=== PATIENT | male | born 1950 ===

== ENCOUNTER 2020-06-12 08:01 | Emergency (ER) | payer OTHER, SELFPAY ==
[2020-06-12] VITALS (108 sets, daily range): BP systolic 46–136; BP diastolic 24–79; PULSE 56–85; RESP 6–33; TEMP 36–36.9; O2SAT 92–100
--- NOTE | 2020-06-12 08:07 | ED.WEAKNESS ---
HPI - Weakness General Chief complaint: GI Bleed Stated complaint: weakness Time Seen by Provider: 06/12/20 08:07 Source: patient and EMS Mode of arrival: EMS History of Present Illness HPI Narrative: Patient is a 70-year-old male history of diabetes hypertension, on methadone for history of IVDA presenting from the methadone clinic for weakness. He apparently felt extremely weak dizzy lightheaded he appears pale. Upon arrival to the emergency department expressing extreme an urgent need to have a bowel movement. He was assisted to a commode for had a large black bowel movement. Blood pressure was found to be extremely low and the 50s. He feels nauseous and is having abdominal pain. Says that he was feeling okay yesterday denies any history of GI bleeding. Does not appear to be on any antiplatelet or anticoagulation medications. He did not get his methadone this morning. Patient thinks he put something on his tamales last night and it gave him diarrhea. Have called and spoken to she is at bedside. MD Complaint: generalized weakness Related Data Allergies Allergy/AdvReac Type Severity Reaction Status Date / Time No Known Drug Allergies Allergy Verified 06/12/20 09:23 Review of Systems Review of Systems ROS Unobtainable: All systems reviewed & are unremarkable except as noted in HPI and below Constitutional Constitutional: Reports weakness Cardiovascular Cardiovascular: Denies chest pain, Denies irregular heart rhythm, Reports lightheadedness, Denies palpitations, Denies dyspnea, Denies dyspnea on exertion and Denies orthopnea Respiratory Respiratory: Denies cough, Denies dyspnea, Denies dyspnea on exertion and Denies wheezing Gastrointestinal Gastrointestinal: Reports as per HPI, Reports melena, Denies coffee ground emesis, Reports nausea and Denies vomiting Musculoskeletal Musculoskeletal: Denies back pain and Denies muscle cramps Integumentary/Breasts Skin/Breast: Denies pruritus, Denies erythema, Denies rash and Denies wounds Neurologic Neurologic: Reports weakness Endocrine Endocrine: Denies palpitations Allergic/Immunologic Allergic/Immunologic: Denies wheezing Patient History Medical History Diabetes Hyperlipidemia Hypertension Social History Smoking Status: Current every day smoker Exam Initial Vital Signs Initial Vital Signs: Vital Signs Pulse Rate 65 06/12/20 08:09 Pulse Oximetry 92 06/12/20 08:09 Gen.: Pale week alert and oriented male HEENT: Head is atraumatic EOMI Neck: Supple no JVD Lungs: Clear bilaterally no respiratory distress rales or rhonchi Cardiac: Regular rate and rhythm Abdomen: Nondistended diffusely tender no localization no guarding or rebound Extremities: Peripheral pulses intact no gross bony deformity Neurologic: A&O x3 moving all extremities Procedures Central Line Placement Left IJ: Time Out Performed: Yes Patient Placed on Monitor/Pulse Ox: Yes MD Prep: mask, gown and gloves Central Line Prep: Chlorhexidine scrub and sterile drapes applied Local Anesthetic: lidocaine 1% Amount of anesthesia used (mL): 5 Ultrasound Used for Placement: Yes Central Line Lumen Inserted: triple Post Procedure: good blood return, all ports aspirated, flushed, capped and sterile dressing applied Post Procedure X-Ray: tip of catheter in good position and no pneumothorax seen Patient Tolerated Procedure: Well Complications: none Scores GCS [place] coma scale eye opening: Spontaneous [place] coma scale verbal response: Orientated [place] coma scale motor response: Obey commands [place] coma scale total score: 15 Course Orders Ordered: ED Orders 06/12/20 08:28 EKG-12 Lead Stat 06/12/20 08:30 Acetaminophen Stat Complete Blood Count AUTO DIFF Stat Comprehensive Metabolic Panel Stat Ethanol (ETOH) Stat Lactate (Lactic Acid) Stat Lipase Stat Packed Cells Stat Salicylate Stat Troponin & CK Cardiac Panel Stat Type and Screen Stat 06/12/20 08:42 XR chest 1V Stat 06/12/20 08:45 Partial Thromboplastin Time Stat Prothrombin Time INR Stat 06/12/20 09:10 COVID19 -Nasal swab/Pre-Proc Stat 06/12/20 09:54 CT chest abd pel w con Stat 06/12/20 10:22 Hemoglobin and Hematocrit Stat 06/12/20 11:00 Blood Culture Stat 06/12/20 11:10 GI Panel (Film Array) Stat 06/12/20 12:45 Basic Metabolic Panel Stat Hemoglobin and Hematocrit Stat 06/12/20 13:44 Urine Drug Screen, Rapid Stat Discontinued Medications Fentanyl (Fentanyl 100 Mcg/2 Ml Inj) 50 mcg IV NOW ONE Stop: 06/12/20 09:18 Last Admin: 06/12/20 09:18 Dose: 50 mcg Documented by: SHAILA Hydromorphone HCl (Hydromorphone 1 Mg Inj) 1 mg IV NOW ONE Stop: 06/12/20 12:08 Last Admin: 06/12/20 12:12 Dose: 1 mg Documented by: SHAILA Sodium Chloride (Normal Saline 0.9%) 1,000 mls @ 2,000 mls/hr IV BOLUS ONE Stop: 06/12/20 08:56 Last Infusion: 06/12/20 09:16 Dose: 0 mls/hr Documented by: Admin: 06/12/20 08:40 Dose: 2,000 mls/hr Documented by: SHAILA Pantoprazole Sodium 80 mg/ (Sodium Chloride) 100 mls @ 10 mls/hr IV CONT MISSY Last Infusion: 06/12/20 14:22 Dose: 0 mg/hr, 0 mls/hr Documented by: Admin: 06/12/20 09:02 Dose: 8 mg/hr, 10 mls/hr Documented by: SHAILA Norepinephrine Bitartrate 4 mg (/ Dextrose) 254 mls @ 30.48 mls/hr IV TITRATE MISSY; Protocol Last Titration: 06/12/20 14:23 Dose: 0 mcg/min, 0 mls/hr Documented by: Titration: 06/12/20 12:53 Dose: 2 mcg/min, 7.62 mls/hr Documented by: Titration: 06/12/20 12:36 Dose: 0 mcg/min, 0 mls/hr Documented by: Titration: 06/12/20 12:08 Dose: 2 mcg/min, 7.62 mls/hr Documented by: Titration: 06/12/20 11:59 Dose: 4 mcg/min, 15.24 mls/hr Documented by: Titration: 06/12/20 11:40 Dose: 5 mcg/min, 19.05 mls/hr Documented by: Titration: 06/12/20 11:22 Dose: 6 mcg/min, 22.86 mls/hr Documented by: Titration: 06/12/20 11:20 Dose: 7 mcg/min, 26.67 mls/hr Documented by: Admin: 06/12/20 09:29 Dose: 8 mcg/min, 30.48 mls/hr Documented by: SHAILA Piperacillin/Tazobactam/Dextrose (Zosyn) 3.375 gm in 50 mls @ 100 mls/hr IV NOW ONE Stop: 06/12/20 10:03 Last Infusion: 06/12/20 10:15 Dose: 0 mls/hr Documented by: Admin: 06/12/20 09:45 Dose: 100 mls/hr Documented by: SHAILA Vancomycin HCl (Vancomycin) 1,000 mg in 200 mls @ 200 mls/hr IV NOW ONE Stop: 06/12/20 10:33 Last Infusion: 06/12/20 11:19 Dose: 0 mls/hr Documented by: Admin: 06/12/20 10:18 Dose: 200 mls/hr Documented by: SHAILA Norepinephrine Bitartrate 4 mg (/ Dextrose) 254 mls @ 30.48 mls/hr IV TITRATE MISSY; Protocol Last Admin: 06/12/20 13:16 Dose: Not Given Documented by: WILLOW Lactated Ringer's (Lactated Ringers) 1,973.13 mls @ 657.71 mls/hr 30 ml/kg infuse over 3 hr (1973.13 ml) IV NOW ONE Stop: 06/12/20 13:55 Last Infusion: 06/12/20 14:23 Dose: 0 mls/hr Documented by: Admin: 06/12/20 11:17 Dose: 657.71 mls/hr Documented by: SHAILA Ceftriaxone Sodium/Dextrose (Rocephin) 2 gm in 50 mls @ 100 mls/hr IV NOW ONE Stop: 06/12/20 12:36 Last Infusion: 06/12/20 13:16 Dose: 0 mls/hr Documented by: Admin: 06/12/20 12:11 Dose: 100 mls/hr Documented by: SHAILA Octreotide Acetate 500 mcg/ (Sodium Chloride) 101 mls @ 5.05 mls/hr IV CONT MISSY; Protocol Last Infusion: 06/12/20 14:23 Dose: 0 mcg/hr, 0 mls/hr Documented by: Admin: 06/12/20 13:17 Dose: 25 mcg/hr, 5.05 mls/hr Documented by: WILLOW Octreotide Acetate (Octreotide 100 Mcg/Ml Vial) 50 mcg IV NOW ONE Stop: 06/12/20 12:08 Last Admin: 06/12/20 12:11 Dose: 50 mcg Documented by: SHAILA Ondansetron HCl (Ondansetron 4 Mg/2 Ml Inj) 4 mg IV NOW ONE Stop: 06/12/20 08:28 Last Admin: 06/12/20 08:40 Dose: 4 mg Documented by: SHAILA Ondansetron HCl (Ondansetron 4 Mg/2 Ml Inj) 4 mg IV NOW ONE Stop: 06/12/20 08:29 Last Admin: 06/12/20 09:07 Dose: 4 mg Documented by: SHAILA Pantoprazole Sodium (Pantoprazole 40 Mg Vial) 40 mg IV NOW ONE Stop: 06/12/20 08:28 Last Admin: 06/12/20 08:40 Dose: 40 mg Documented by: SHAILA Vital Signs Vital signs: Vital Signs - 8 hr 06/12/20 08:53 06/12/20 08:54 06/12/20 08:55 Temperature 97.5 F L Pulse Rate 63 63 60 Respiratory Rate 24 20 21 Blood Pressure 66/43 L 63/43 L 64/43 L Pulse Oximetry 94 94 94 06/12/20 08:56 06/12/20 08:57 06/12/20 08:58 Temperature Pulse Rate 60 61 61 Respiratory Rate 22 23 21 Blood Pressure 66/44 L 65/45 L 66/46 L Pulse Oximetry 93 94 94 06/12/20 08:59 06/12/20 09:00 06/12/20 09:01 Temperature Pulse Rate 63 63 61 Respiratory Rate 21 26 H 23 Blood Pressure 64/44 L 67/44 L Pulse Oximetry 93 95 94 06/12/20 09:02 06/12/20 09:03 06/12/20 09:04 Temperature Pulse Rate 60 61 61 Respiratory Rate 17 19 19 Blood Pressure 67/40 L 67/45 L 66/45 L Pulse Oximetry 95 96 96 06/12/20 09:05 06/12/20 09:10 06/12/20 09:15 Temperature Pulse Rate 62 61 62 Respiratory Rate 19 17 24 Blood Pressure 65/42 L 67/44 L 63/43 L Pulse Oximetry 97 97 97 06/12/20 09:20 06/12/20 09:21 06/12/20 09:22 Temperature 96.8 F L Pulse Rate 61 61 68 Respiratory Rate 23 27 H 29 H Blood Pressure 63/45 L 66/41 L 77/44 L Pulse Oximetry 96 96 95 06/12/20 09:23 06/12/20 09:24 06/12/20 09:25 Temperature Pulse Rate 71 71 70 Respiratory Rate 28 H 23 20 Blood Pressure 92/54 L 86/48 L 82/45 L Pulse Oximetry 95 97 97 06/12/20 09:26 06/12/20 09:27 06/12/20 09:28 Temperature Pulse Rate 71 71 70 Respiratory Rate 20 26 H 22 Blood Pressure 83/44 L 78/44 L 74/44 L Pulse Oximetry 98 98 99 06/12/20 09:29 06/12/20 09:30 06/12/20 09:31 Temperature Pulse Rate 68 68 68 Respiratory Rate 21 22 24 Blood Pressure 73/44 L 74/44 L 72/40 L Pulse Oximetry 98 98 99 06/12/20 09:32 06/12/20 09:33 06/12/20 09:36 Temperature Pulse Rate 67 69 70 Respiratory Rate 17 20 31 H Blood Pressure 82/48 L 96/51 L 103/79 Pulse Oximetry 100 100 100 06/12/20 09:37 06/12/20 09:38 06/12/20 09:39 Temperature Pulse Rate 71 69 69 Respiratory Rate 28 H 30 H 27 H Blood Pressure 100/59 L 98/60 97/55 L Pulse Oximetry 99 98 98 06/12/20 09:40 06/12/20 09:41 06/12/20 09:42 Temperature Pulse Rate 68 68 69 Respiratory Rate 32 H 30 H 22 Blood Pressure 105/55 L 103/53 L 106/55 L Pulse Oximetry 98 99 99 06/12/20 09:43 06/12/20 09:44 06/12/20 09:45 Temperature Pulse Rate 68 68 68 Respiratory Rate 31 H 24 27 H Blood Pressure 104/57 L 105/59 L 94/52 L Pulse Oximetry 98 98 97 06/12/20 09:46 06/12/20 09:47 06/12/20 09:48 Temperature Pulse Rate 69 71 69 Respiratory Rate 33 H 32 H 33 H Blood Pressure 105/53 L 110/55 L 101/52 L Pulse Oximetry 98 98 98 06/12/20 09:49 06/12/20 09:50 06/12/20 09:51 Temperature Pulse Rate 68 67 68 Respiratory Rate 31 H 26 H 32 H Blood Pressure 117/56 L 121/60 123/55 L Pulse Oximetry 99 99 98 06/12/20 09:55 06/12/20 10:00 06/12/20 10:13 Temperature Pulse Rate 62 63 67 Respiratory Rate 24 22 24 Blood Pressure 105/51 L 124/62 Pulse Oximetry 98 99 97 06/12/20 10:30 06/12/20 10:58 06/12/20 11:00 Temperature Pulse Rate 72 64 64 Respiratory Rate 16 16 16 Blood Pressure 116/58 L Pulse Oximetry 95 97 06/12/20 11:15 06/12/20 11:20 06/12/20 11:25 Temperature Pulse Rate 80 75 67 Respiratory Rate 23 13 22 Blood Pressure 113/59 L 126/56 L 108/58 L Pulse Oximetry 96 96 96 06/12/20 11:30 06/12/20 11:35 06/12/20 11:40 Temperature Pulse Rate 61 63 56 L Respiratory Rate 17 17 13 Blood Pressure 128/60 121/56 L 109/55 L Pulse Oximetry 96 96 96 06/12/20 11:45 06/12/20 11:50 06/12/20 11:56 Temperature Pulse Rate 66 56 L 57 L Respiratory Rate 14 27 H 23 Blood Pressure 109/53 L 136/63 127/62 Pulse Oximetry 97 96 96 06/12/20 12:00 06/12/20 12:05 06/12/20 12:10 Temperature Pulse Rate 57 L 59 L 58 L Respiratory Rate 22 22 24 Blood Pressure 124/57 L 110/56 L 112/55 L Pulse Oximetry 97 97 96 06/12/20 12:15 06/12/20 12:20 06/12/20 12:26 Temperature Pulse Rate 57 L 61 65 Respiratory Rate 14 23 6 L Blood Pressure 108/55 L 127/60 103/49 L Pulse Oximetry 96 97 95 06/12/20 12:30 06/12/20 12:34 06/12/20 12:35 Temperature Pulse Rate 60 66 69 Respiratory Rate 25 H 24 25 H Blood Pressure 90/49 L 93/52 L Pulse Oximetry 96 96 96 06/12/20 12:40 06/12/20 12:45 06/12/20 12:51 Temperature Pulse Rate 67 63 64 Respiratory Rate 21 16 22 Blood Pressure 93/52 L 84/47 L 98/53 L Pulse Oximetry 96 96 97 06/12/20 13:00 06/12/20 13:15 06/12/20 13:28 Temperature Pulse Rate 65 69 72 Respiratory Rate 23 24 22 Blood Pressure 104/53 L Pulse Oximetry 96 96 96 06/12/20 13:30 06/12/20 13:36 06/12/20 13:40 Temperature Pulse Rate 72 75 74 Respiratory Rate 24 22 21 Blood Pressure 102/44 L 110/59 L 116/50 L Pulse Oximetry 96 95 95 06/12/20 13:45 06/12/20 13:50 06/12/20 14:00 Temperature Pulse Rate 74 78 78 Respiratory Rate 23 21 16 Blood Pressure 113/53 L 106/55 L 108/55 L Pulse Oximetry 92 95 95 06/12/20 14:05 06/12/20 14:10 06/12/20 14:15 Temperature 98.4 F Pulse Rate 76 72 75 Respiratory Rate 20 22 19 Blood Pressure 115/56 L 123/56 L 115/59 L Pulse Oximetry 95 95 96 06/12/20 14:20 Temperature Pulse Rate 78 Respiratory Rate 17 Blood Pressure 122/59 L Pulse Oximetry 96 MDM - Weakness Lab Data Attestation: I reviewed the patient's lab results. Result diagrams: 06/12/20 12:45 06/12/20 12:45 Labs: Lab Results 06/12/20 06/12/20 06/12/20 Range/Units 08:30 08:30 08:30 WBC 8.9 (4.5-11.0) X10^3/uL RBC 4.17 L (4.5-5.9) X10^6/uL Hgb 14.4 (13.5-17.5) g/dL Hct 40.0 L (41-53) % MCV 95.9 (80-100) fL MCH 34.5 H (26-34) PG MCHC 36.0 (30-36) % RDW 13.5 (11.6-14.8) % Plt Count TNP Neut % (Auto) 62.5 (50-75) % Lymph % (Auto) 26.9 (25-40) % [place] % (Auto) 4.2 (3-14) % Eos % (Auto) 5.7 H (2-4) % Baso % (Auto) 0.7 (0-2) % Neut # (Auto) 5500 (9786-5631) /uL Lymph # (Auto) 2400 (7699-2322) /uL [place] # (Auto) 400 (0-900) /uL Eos # (Auto) 500 H (0-450) /uL Baso # (Auto) 100 (0-100) /uL Platelet Estimate Decreased on smear Plt Morphology Comment RBC Morphology Norm PT (10.1-12.7) SECONDS INR (0.9-1.3) APTT (26.4-36.2) SECONDS Sodium 137 (137-145) mmol/L Potassium 4.6 (3.4-5.1) mmol/L Chloride 102 (98-107) mmol/L Carbon Dioxide 19 L (22-32) mmol/L BUN 60 H (9-20) mg/dL Creatinine 2.82 H (0.66-1.25) mg/dL Estimated GFR 22.2 L (>60) mL/min BUN/Creatinine Ratio 21.3 (6-22) Glucose 311 H (80-110) mg/dL Lactate 3.9 H (0.7-2.1) mmol/L Calcium 10.7 H (8.4-10.2) mg/dL Total Bilirubin 0.9 (0.2-1.3) mg/dL AST 51 (17-59) IU/L ALT 26 (<50) IU/L Alkaline Phosphatase 115 (38-126) U/L Total Creatine Kinase 49 L (55-170) U/L CK-MB (CK-2) TNP CK-MB (CK-2) Rel Index TNP Troponin I < 0.012 (0.01-0.034) ng/mL Total Protein 9.3 H (6.3-8.2) g/dL Albumin 4.8 (3.5-5.0) g/dL Globulin 4.5 H (1.7-4.1) g/dL Albumin/Globulin Ratio 1.1 (1.0-2.8) Lipase 546 H (23-300) U/L Stl C. cayetanensis PCR (Not Detect) Stool Rotavirus (PCR) (Not Detect) Stool Adenovirus (PCR) (Not Detect) Stool Astrovirus (PCR) (Not Detect) Stool Cryptosporidium PCR (Not Detect) Stl E.coli Shiga Tox PCR (Not Detect) St Sh/Enteroin Ecoli PCR (Not Detect) Stool E coli O157 PCR Stl Enterotoxigenic E PCR (Not Detect) Stool EPEC (PCR) (Not Detect) Stl E. histolytica PCR (Not Detect) Stool Giardia Lamblia PCR (Not Detect) Stool Sapovirus (PCR) (Not Detect) Stl P. shigelloides PCR (Not Detect) St Y.enterocolitica PCR (Not Detect) Stool Vibrio (PCR) (Not Detect) Stl Vibrio cholerae PCR (Not Detect) Stl Enteroaggr Ecoli PCR (Not Detect) Stl Norovirus GI/GII PCR (Not Detect) Salicylates 1.3 (<20) mg/dL U Opiates 300ng/mL cut (Negative) Ur Oxycodone Screen (Negative) Urine Methadone Screen (Negative) Acetaminophen < 10 L (10-30) ug/mL Ur Barbiturates Screen (Negative) U Tricyclic Antidepress (Negative) Ur Phencyclidine Scrn (Negative) Ur Amphetamines Screen (Negative) U Methamphetamines Scrn (Negative) Ur MDMA Scrn (Ecstasy) (Negative) U Benzodiazepines Scrn (Negative) Urine Cocaine Screen (Negative) U Marijuana (THC) Screen (Negative) Ethyl Alcohol < 10 ( - 10) mg/dL Campylobacter (PCR) (Not Detect) C. difficile Tox (PCR) (Not Detect) SARS-CoV-2 (PCR) (Negative) Salmonella (PCR) (Not Detect) Blood Type Antibody Screen Crossmatch 06/12/20 06/12/20 06/12/20 Range/Units 08:30 08:45 09:10 WBC (4.5-11.0) X10^3/uL RBC (4.5-5.9) X10^6/uL Hgb (13.5-17.5) g/dL Hct (41-53) % MCV (80-100) fL MCH (26-34) PG MCHC (30-36) % RDW (11.6-14.8) % Plt Count Neut % (Auto) (50-75) % Lymph % (Auto) (25-40) % [place] % (Auto) (3-14) % Eos % (Auto) (2-4) % Baso % (Auto) (0-2) % Neut # (Auto) (1650-4914) /uL Lymph # (Auto) (4591-9666) /uL [place] # (Auto) (0-900) /uL Eos # (Auto) (0-450) /uL Baso # (Auto) (0-100) /uL Platelet Estimate Plt Morphology Comment RBC Morphology PT 11.9 (10.1-12.7) SECONDS INR 1.0 (0.9-1.3) APTT 20 L (26.4-36.2) SECONDS Sodium (137-145) mmol/L Potassium (3.4-5.1) mmol/L Chloride (98-107) mmol/L Carbon Dioxide (22-32) mmol/L BUN (9-20) mg/dL Creatinine (0.66-1.25) mg/dL Estimated GFR (>60) mL/min BUN/Creatinine Ratio (6-22) Glucose (80-110) mg/dL Lactate (0.7-2.1) mmol/L Calcium (8.4-10.2) mg/dL Total Bilirubin (0.2-1.3) mg/dL AST (17-59) IU/L ALT (<50) IU/L Alkaline Phosphatase (38-126) U/L Total Creatine Kinase (55-170) U/L CK-MB (CK-2) CK-MB (CK-2) Rel Index Troponin I (0.01-0.034) ng/mL Total Protein (6.3-8.2) g/dL Albumin (3.5-5.0) g/dL Globulin (1.7-4.1) g/dL Albumin/Globulin Ratio (1.0-2.8) Lipase (23-300) U/L Stl C. cayetanensis PCR (Not Detect) Stool Rotavirus (PCR) (Not Detect) Stool Adenovirus (PCR) (Not Detect) Stool Astrovirus (PCR) (Not Detect) Stool Cryptosporidium PCR (Not Detect) Stl E.coli Shiga Tox PCR (Not Detect) St Sh/Enteroin Ecoli PCR (Not Detect) Stool E coli O157 PCR Stl Enterotoxigenic E PCR (Not Detect) Stool EPEC (PCR) (Not Detect) Stl E. histolytica PCR (Not Detect) Stool Giardia Lamblia PCR (Not Detect) Stool Sapovirus (PCR) (Not Detect) Stl P. shigelloides PCR (Not Detect) St Y.enterocolitica PCR (Not Detect) Stool Vibrio (PCR) (Not Detect) Stl Vibrio cholerae PCR (Not Detect) Stl Enteroaggr Ecoli PCR (Not Detect) Stl Norovirus GI/GII PCR (Not Detect) Salicylates (<20) mg/dL U Opiates 300ng/mL cut (Negative) Ur Oxycodone Screen (Negative) Urine Methadone Screen (Negative) Acetaminophen (10-30) ug/mL Ur Barbiturates Screen (Negative) U Tricyclic Antidepress (Negative) Ur Phencyclidine Scrn (Negative) Ur Amphetamines Screen (Negative) U Methamphetamines Scrn (Negative) Ur MDMA Scrn (Ecstasy) (Negative) U Benzodiazepines Scrn (Negative) Urine Cocaine Screen (Negative) U Marijuana (THC) Screen (Negative) Ethyl Alcohol ( - 10) mg/dL Campylobacter (PCR) (Not Detect) C. difficile Tox (PCR) (Not Detect) SARS-CoV-2 (PCR) Negative (Negative) Salmonella (PCR) (Not Detect) Blood Type O Positive Antibody Screen Negative Crossmatch See Detail 06/12/20 06/12/20 06/12/20 Range/Units 10:22 11:00 11:10 WBC (4.5-11.0) X10^3/uL RBC (4.5-5.9) X10^6/uL Hgb 12.9 L (13.5-17.5) g/dL Hct 38.1 L (41-53) % MCV (80-100) fL MCH (26-34) PG MCHC (30-36) % RDW (11.6-14.8) % Plt Count Neut % (Auto) (50-75) % Lymph % (Auto) (25-40) % [place] % (Auto) (3-14) % Eos % (Auto) (2-4) % Baso % (Auto) (0-2) % Neut # (Auto) (2652-4198) /uL Lymph # (Auto) (6742-7007) /uL [place] # (Auto) (0-900) /uL Eos # (Auto) (0-450) /uL Baso # (Auto) (0-100) /uL Platelet Estimate Plt Morphology Comment RBC Morphology PT (10.1-12.7) SECONDS INR (0.9-1.3) APTT (26.4-36.2) SECONDS Sodium (137-145) mmol/L Potassium (3.4-5.1) mmol/L Chloride (98-107) mmol/L Carbon Dioxide (22-32) mmol/L BUN (9-20) mg/dL Creatinine (0.66-1.25) mg/dL Estimated GFR (>60) mL/min BUN/Creatinine Ratio (6-22) Glucose (80-110) mg/dL Lactate 2.3 H (0.7-2.1) mmol/L Calcium (8.4-10.2) mg/dL Total Bilirubin (0.2-1.3) mg/dL AST (17-59) IU/L ALT (<50) IU/L Alkaline Phosphatase (38-126) U/L Total Creatine Kinase (55-170) U/L CK-MB (CK-2) CK-MB (CK-2) Rel Index Troponin I (0.01-0.034) ng/mL Total Protein (6.3-8.2) g/dL Albumin (3.5-5.0) g/dL Globulin (1.7-4.1) g/dL Albumin/Globulin Ratio (1.0-2.8) Lipase (23-300) U/L Stl C. cayetanensis PCR Not detected (Not Detect) Stool Rotavirus (PCR) Not detected (Not Detect) Stool Adenovirus (PCR) Not detected (Not Detect) Stool Astrovirus (PCR) Not detected (Not Detect) Stool Cryptosporidium PCR Not detected (Not Detect) Stl E.coli Shiga Tox PCR Not detected (Not Detect) St Sh/Enteroin Ecoli PCR Not detected (Not Detect) Stool E coli O157 PCR Not Reportable Stl Enterotoxigenic E PCR Not detected (Not Detect) Stool EPEC (PCR) Not detected (Not Detect) Stl E. histolytica PCR Not detected (Not Detect) Stool Giardia Lamblia PCR Not detected (Not Detect) Stool Sapovirus (PCR) Not detected (Not Detect) Stl P. shigelloides PCR Not detected (Not Detect) St Y.enterocolitica PCR Not detected (Not Detect) Stool Vibrio (PCR) Not detected (Not Detect) Stl Vibrio cholerae PCR Not detected (Not Detect) Stl Enteroaggr Ecoli PCR Not detected (Not Detect) Stl Norovirus GI/GII PCR Not detected (Not Detect) Salicylates (<20) mg/dL U Opiates 300ng/mL cut (Negative) Ur Oxycodone Screen (Negative) Urine Methadone Screen (Negative) Acetaminophen (10-30) ug/mL Ur Barbiturates Screen (Negative) U Tricyclic Antidepress (Negative) Ur Phencyclidine Scrn (Negative) Ur Amphetamines Screen (Negative) U Methamphetamines Scrn (Negative) Ur MDMA Scrn (Ecstasy) (Negative) U Benzodiazepines Scrn (Negative) Urine Cocaine Screen (Negative) U Marijuana (THC) Screen (Negative) Ethyl Alcohol ( - 10) mg/dL Campylobacter (PCR) Not detected (Not Detect) C. difficile Tox (PCR) Not detected (Not Detect) SARS-CoV-2 (PCR) (Negative) Salmonella (PCR) Not detected (Not Detect) Blood Type Antibody Screen Crossmatch 06/12/20 06/12/20 06/12/20 Range/Units 12:45 12:45 13:44 WBC (4.5-11.0) X10^3/uL RBC (4.5-5.9) X10^6/uL Hgb 13.3 L (13.5-17.5) g/dL Hct 38.8 L (41-53) % MCV (80-100) fL MCH (26-34) PG MCHC (30-36) % RDW (11.6-14.8) % Plt Count Neut % (Auto) (50-75) % Lymph % (Auto) (25-40) % [place] % (Auto) (3-14) % Eos % (Auto) (2-4) % Baso % (Auto) (0-2) % Neut # (Auto) (6219-0882) /uL Lymph # (Auto) (0335-9489) /uL [place] # (Auto) (0-900) /uL Eos # (Auto) (0-450) /uL Baso # (Auto) (0-100) /uL Platelet Estimate Plt Morphology Comment RBC Morphology PT (10.1-12.7) SECONDS INR (0.9-1.3) APTT (26.4-36.2) SECONDS Sodium 136 L (137-145) mmol/L Potassium 5.6 H (3.4-5.1) mmol/L Chloride 104 (98-107) mmol/L Carbon Dioxide 19 L (22-32) mmol/L BUN 57 H (9-20) mg/dL Creatinine 2.43 H (0.66-1.25) mg/dL Estimated GFR 26.4 L (>60) mL/min BUN/Creatinine Ratio 23.5 H (6-22) Glucose 325 H (80-110) mg/dL Lactate (0.7-2.1) mmol/L Calcium 8.5 (8.4-10.2) mg/dL Total Bilirubin (0.2-1.3) mg/dL AST (17-59) IU/L ALT (<50) IU/L Alkaline Phosphatase (38-126) U/L Total Creatine Kinase (55-170) U/L CK-MB (CK-2) CK-MB (CK-2) Rel Index Troponin I (0.01-0.034) ng/mL Total Protein (6.3-8.2) g/dL Albumin (3.5-5.0) g/dL Globulin (1.7-4.1) g/dL Albumin/Globulin Ratio (1.0-2.8) Lipase (23-300) U/L Stl C. cayetanensis PCR (Not Detect) Stool Rotavirus (PCR) (Not Detect) Stool Adenovirus (PCR) (Not Detect) Stool Astrovirus (PCR) (Not Detect) Stool Cryptosporidium PCR (Not Detect) Stl E.coli Shiga Tox PCR (Not Detect) St Sh/Enteroin Ecoli PCR (Not Detect) Stool E coli O157 PCR Stl Enterotoxigenic E PCR (Not Detect) Stool EPEC (PCR) (Not Detect) Stl E. histolytica PCR (Not Detect) Stool Giardia Lamblia PCR (Not Detect) Stool Sapovirus (PCR) (Not Detect) Stl P. shigelloides PCR (Not Detect) St Y.enterocolitica PCR (Not Detect) Stool Vibrio (PCR) (Not Detect) Stl Vibrio cholerae PCR (Not Detect) Stl Enteroaggr Ecoli PCR (Not Detect) Stl Norovirus GI/GII PCR (Not Detect) Salicylates (<20) mg/dL U Opiates 300ng/mL cut Negative (Negative) Ur Oxycodone Screen Negative (Negative) Urine Methadone Screen Positive H (Negative) Acetaminophen (10-30) ug/mL Ur Barbiturates Screen Negative (Negative) U Tricyclic Antidepress Negative (Negative) Ur Phencyclidine Scrn Negative (Negative) Ur Amphetamines Screen Negative (Negative) U Methamphetamines Scrn Negative (Negative) Ur MDMA Scrn (Ecstasy) Negative (Negative) U Benzodiazepines Scrn Negative (Negative) Urine Cocaine Screen Negative (Negative) U Marijuana (THC) Screen Negative (Negative) Ethyl Alcohol ( - 10) mg/dL Campylobacter (PCR) (Not Detect) C. difficile Tox (PCR) (Not Detect) SARS-CoV-2 (PCR) (Negative) Salmonella (PCR) (Not Detect) Blood Type Antibody Screen Crossmatch Point of Care Testing Stool Occult Blood Positive Imaging Data Chest x-ray: Radiologist Impression: PROCEDURE: XR CHEST 1V INDICATIONS: gi bleed TECHNIQUE: One view of the chest was acquired. COMPARISON: None. FINDINGS: Surgical changes and devices: Left IJ central line.. Lungs and pleura: Question right apical lung mass overlying the right 1st rib. Lungs are clear. No pleural effusions or pneumothorax. Mediastinum: Mediastinal contours appear normal. Aorta is tortuous and unfolded. Heart size is normal. Bones and chest wall: No suspicious bony lesions. Overlying soft tissues appear unremarkable. IMPRESSION: 1. Question right apical lung mass. 2. No evidence acute pulmonary process. It is noted that the patient is already scheduled for a CT of the chest, abdomen, and pelvis, at which time the right apex will be evaluated. Dictated by: Jacky Solis M.D. on 06/12/2020 at 10:13 CT scan - abdomen/pelvis: Radiologist Impression: PROCEDURE: CT CHEST ABD PEL W CON INDICATIONS: hypotension GI bleed TECHNIQUE: After the administration of intravenous contrast, 5 mm thick sections acquired from the lung apices to the symphysis. 5 mm coronal and sagittal reformats were performed, with additional 7 mm coronal MIP reformats through the lungs. For radiation dose reduction, the following was used: automated exposure control, adjustment of mA and/or kV according to patient size. COMPARISON: [facility], CR, XR CHEST 1V, 06/12/2020, 9:32. FINDINGS: Image quality: Excellent. CHEST: Lungs and pleura: Moderate centrilobular and paraseptal emphysema are seen in the upper lobes bilaterally. In the right lung apex, there is a 4.7 x 3.0 x 2.7 cm solid mass. Dependent atelectasis is seen in the right lung base. No acute airspace opacities. No pleural effusions or pneumothorax. Central and peripheral airways appear patent and normal in caliber. Mediastinum: A right hilar lymph node measures 11 mm in short axis diameter (29/2). A right paratracheal lymph node measures 10 mm in short axis (24/2). Heart size is normal. No pericardial effusion. Moderate coronary artery atherosclerotic calcifications are seen. Thoracic aorta and central pulmonary arteries are normal in size. Mild to moderate aortic atherosclerotic calcifications. Esophagus is normal in caliber. No hiatal hernia. Chest wall: A left internal jugular catheter is noted. No axillary or supraclavicular adenopathy by size criteria. Thyroid gland appears normal. ABDOMEN: Solid organs: Nodular appearance of the liver surface is consistent with cirrhosis. No focal hypoattenuating mass is identified. The gallbladder contains multiple tiny dependent gallstones. There is no significant biliary ductal dilatation. Pancreas enhances normally. Spleen is normal in size and enhancement. No adrenal nodules. Kidneys demonstrate normal size and enhancement, without hydronephrosis. Multiple nonspecific renal cortical calcifications are seen in the right kidney that may be related to prior insult. Peritoneum and bowel: The stomach contains a moderate amount of fluid. Hyperdense material is seen posteriorly that most likely represents food material rather than active contrast extravasation. Small bowel loops are not significantly dilated. There is a large amount of fluid in the colon. Normal appendix. No free fluid or air. Nodes and vessels: No retroperitoneal or mesenteric adenopathy by size criteria. Moderate aortic atherosclerotic calcifications are seen with mild infrarenal ectasia measuring up to 2.6 cm in maximum diameter. Upper abdominal varices are seen surrounding the gastric stomach and in the paraesophageal region. Miscellaneous: No ventral hernias. PELVIS: Genitourinary: Bladder wall thickness is normal. Miscellaneous: There is a tiny fat containing right inguinal hernia. No significant pelvic lymphadenopathy is seen. Bones: No suspicious bony lesions. Moderate compression fractures are seen in the L1 and L2 vertebra of uncertain age. IMPRESSION: 1. Prominent gastric varices. No active contrast extravasation is seen into the gastrointestinal tract. Fluid throughout the colon may indicate diarrhea. 2. Hepatic cirrhosis. No ascites. Spleen size is normal. 3. Cholelithiasis. 4. Right apical lung mass measures 4.7 x 3.0 x 2.7 cm, suspicious for malignancy. Mildly enlarged right hilar and right paratracheal lymph nodes are seen measuring up to 1.1 cm in diameter. 5. Moderate centrilobular and paraseptal emphysema. 6. Age-indeterminate moderate vertebral body compression fractures involving the L1 and L2 vertebra Dictated by: Joe Prescott M.D. on 06/12/2020 at 10:47 ECG Data Attestation: I personally reviewed and interpreted this ECG as follows: Prior ECG tracings: not available for review Interpretation: Normal sinus rhythm rate 59 p.r. interval 144 QRS [address] depression in lead 2 T-wave inversion in lead 1 and the 2 incomplete right bundle-branch block T-wave inversion also in V3 through V6 MDM Narrative Medical decision making narrative: Patient initially severely hypotensive blood pressure in the 50s pale he had large bowel movement immediately when he arrived. It was guaiac positive and slightly dark. Treated for hemorrhagic shock in GI bleed emergent uncrossmatched 1 unit PRBC was which transfused. Was given 2 L of normal saline he really was minimally responsive to the saline and blood getting to a systolic of only 60. Central line was placed and Levophed started. Repeat H&H does not show a significant drop is of his hemoglobin. He has actually continued to have copious amounts of diarrhea that were actually suctioned from his rectum. A rectal tube was also placed. Romano catheter was requested repeatedly by myself and staff however patient adamantly refused. Despite his low but blood pressure he maintained a GCS of 15. His lactic acid improved with fluids and resuscitation. Concern for possible sepsis. A GI panel actually returned and was negative. The patient's repeat hemoglobin hematocrit actually remained stable and have gone up do not believe him to have a GI bleed. Repeat BUN creatinine has improved with IV fluids. BUN now 57 creatinine 2.4. Attempted to wean off Levophed however he is still requiring 2 mcg/min 0908-Dr. Garza surgery updated on patient's symptoms and test results requesting patient be transferred is to higher level of care [facility]-no beds [facility] no bed [facility] no beds [facility] no beds [facility] no beds [facility] no beds [place]-beds available later 12:09Dr. shahnaz marketing pr intern updated patient's test results and current symptoms. At this time is CT does show gastric varices he had 1 episode of vomiting recommends octreotide drip along with Rocephin. Critical Care Time Critical Care Time Critical Care Time: Yes Total Critical Care Time: 120 Attestation: The high probability of a clinically significant, sudden or life threatening deterioration of the [cardiovascular] system(s) required my full and direct attention, intervention and personal management. The aggregate critical care time was 120 minutes. This time is in addition to time spent performing reported procedures but includes the following: [x] Data Review and interpretation [x] Patient assessment and monitoring of vital signs [x] Documentation [x] Medication orders and management Discharge Plan Departure Patient Disposition: [facility] Clinical Impression: Septic shock
[2020-06-12] MEDS: SODIUM CHLORIDE 0.9% 1,000 ML 2000 ML IV (08:40)
[2020-06-12] MEDS: PANTOPRAZOLE 40 MG VIAL IV (08:40)
[2020-06-12] MEDS: ONDANSETRON 4 MG/2 ML INJ IV ×2 (08:40→09:07)
--- NOTE | 2020-06-12 08:42 | DI.RAD.S_ITS ---
PROCEDURE: XR CHEST 1V INDICATIONS: gi bleed TECHNIQUE: One view of the chest was acquired. COMPARISON: None. FINDINGS: Surgical changes and devices: Left IJ central line.. Lungs and pleura: Question right apical lung mass overlying the right 1st rib. Lungs are clear. No pleural effusions or pneumothorax. Mediastinum: Mediastinal contours appear normal. Aorta is tortuous and unfolded. Heart size is normal. Bones and chest wall: No suspicious bony lesions. Overlying soft tissues appear unremarkable. IMPRESSION: 1. Question right apical lung mass. 2. No evidence acute pulmonary process. It is noted that the patient is already scheduled for a CT of the chest, abdomen, and pelvis, at which time the right apex will be evaluated. Dictated by: Jacky Solis M.D. on 06/12/2020 at 10:13 Approved by: Jacky Solis M.D. on 06/12/2020 at 10:14
[2020-06-12 08:45] LABS: Alanine Aminotransferase 26 IU/L (<50); Albumin 4.8 g/dL (3.5-5.0); Albumin Globulin Ratio 1.1 (1.0-2.8); Alkaline Phosphatase 115 U/L (38-126); Aspartate Aminotransferase 51 IU/L (17-59); BUN Creatinine Ratio 21.3 (6-22); Basophils Absolute Auto 100 /uL (0-100); Basophils Percent Auto 0.7 % (0-2); Bilirubin Total 0.9 mg/dL (0.2-1.3); Blood Urea Nitrogen 60 mg/dL (9-20); Calcium 10.7 mg/dL (8.4-10.2); Carbon Dioxide 19 mmol/L (22-32); Chloride 102 mmol/L (98-107); Creatine Kinase 49 U/L (55-170); Eosinophils Absolute Auto 500 /uL (0-450); Eosinophils Percent Auto 5.7 % (2-4); Estimated Glomerular Filt Rate 22.2 mL/min (>60); Globulin 4.5 g/dL (1.7-4.1); Glucose 311 mg/dL (80-110); Hemoglobin 14.4 g/dL (13.5-17.5); Lipase 546 U/L (23-300); Lymphocytes Absolute Auto 2400 /uL (1100-4500); Lymphocytes Percent Auto 26.9 % (25-40); Mean Corpuscular Hemoglobin 34.5 PG (26-34); Mean Corpuscular Volume 95.9 fL (80-100); Monocytes Absolute Auto 400 /uL (0-900); Monocytes Percent Auto 4.2 % (3-14); Neutrophils Absolute Auto 5500 /uL (1500-7000); Neutrophils Percent Auto 62.5 % (50-75); Potassium 4.6 mmol/L (3.4-5.1); Red Blood Cell Count 4.17 X10^6/uL (4.5-5.9); Red Cell Distribution Width 13.5 % (11.6-14.8); Sodium 137 mmol/L (137-145); Total Protein 9.3 g/dL (6.3-8.2); White Blood Cell Count 8.9 X10^3/uL (4.5-11.0)
[2020-06-12 08:46] LABS: Add Manual Diff / Slide Review SLIDE REVIEW; Lactate (Lactic Acid) 3.9 mmol/L (0.7-2.1)
[2020-06-12 08:57] LABS: Troponin I < 0.012 ng/mL (0.01-0.034)
[2020-06-12 09:00] LABS: Prothrombin Time 11.9 SECONDS (10.1-12.7)
[2020-06-12] MEDS: PANTOPRAZOLE 80 MG in SODIUM CHLORIDE 0.9% 100 ML 10 ML IV (09:02)
[2020-06-12 09:03] LABS: PTT Partial Thromboplastin Tim 20 SECONDS (26.4-36.2)
[2020-06-12 09:09] LABS: Acetaminophen < 10 ug/mL (10-30); Ethanol (ETOH) < 10 mg/dL; HEMOLYSIS 42 (0-50); Salicylate 1.3 mg/dL (<20)
[2020-06-12 09:18] LABS: Platelet Estimate Decreased on smear; RBC Morphology Norm
[2020-06-12] MEDS: fentaNYL 100 MCG/2 ML INJ 50 MCG IV (09:18)
[2020-06-12 09:21] LABS: COVID19 -Nasal RAPID Negative (Negative)
--- NOTE | 2020-06-12 09:22 | PC.NURSE ---
Addendum entered by Glenna Hutton R.N. 06/12/20 09:25: 1mg/10ml Original Note: 10 mcg push dose Epinepherine given via IV. placing central line. Blood completed, pt tolerated well.
[2020-06-12] MEDS: NOREPINEPHRINE 4 MG in DEXTROSE 5% IN WATER 250 ML 30.48 ML IV (09:29)
[2020-06-12] MEDS: PIPERACILLIN-TAZO 3.375 GM/50 ML FROZ.PIGGY IV (09:45)
[2020-06-12] MEDS: fentaNYL 100 MCG/2 ML INJ (09:54)
--- NOTE | 2020-06-12 09:54 | DI.CT.S_ITS ---
PROCEDURE: CT CHEST ABD PEL W CON INDICATIONS: hypotension GI bleed TECHNIQUE: After the administration of intravenous contrast, 5 mm thick sections acquired from the lung apices to the symphysis. 5 mm coronal and sagittal reformats were performed, with additional 7 mm coronal MIP reformats through the lungs. For radiation dose reduction, the following was used: automated exposure control, adjustment of mA and/or kV according to patient size. COMPARISON: [facility], CR, XR CHEST 1V, 06/12/2020, 9:32. FINDINGS: Image quality: Excellent. CHEST: Lungs and pleura: Moderate centrilobular and paraseptal emphysema are seen in the upper lobes bilaterally. In the right lung apex, there is a 4.7 x 3.0 x 2.7 cm solid mass. Dependent atelectasis is seen in the right lung base. No acute airspace opacities. No pleural effusions or pneumothorax. Central and peripheral airways appear patent and normal in caliber. Mediastinum: A right hilar lymph node measures 11 mm in short axis diameter (29/2). A right paratracheal lymph node measures 10 mm in short axis (24/2). Heart size is normal. No pericardial effusion. Moderate coronary artery atherosclerotic calcifications are seen. Thoracic aorta and central pulmonary arteries are normal in size. Mild to moderate aortic atherosclerotic calcifications. Esophagus is normal in caliber. No hiatal hernia. Chest wall: A left internal jugular catheter is noted. No axillary or supraclavicular adenopathy by size criteria. Thyroid gland appears normal. ABDOMEN: Solid organs: Nodular appearance of the liver surface is consistent with cirrhosis. No focal hypoattenuating mass is identified. The gallbladder contains multiple tiny dependent gallstones. There is no significant biliary ductal dilatation. Pancreas enhances normally. Spleen is normal in size and enhancement. No adrenal nodules. Kidneys demonstrate normal size and enhancement, without hydronephrosis. Multiple nonspecific renal cortical calcifications are seen in the right kidney that may be related to prior insult. Peritoneum and bowel: The stomach contains a moderate amount of fluid. Hyperdense material is seen posteriorly that most likely represents food material rather than active contrast extravasation. Small bowel loops are not significantly dilated. There is a large amount of fluid in the colon. Normal appendix. No free fluid or air. Nodes and vessels: No retroperitoneal or mesenteric adenopathy by size criteria. Moderate aortic atherosclerotic calcifications are seen with mild infrarenal ectasia measuring up to 2.6 cm in maximum diameter. Upper abdominal varices are seen surrounding the gastric stomach and in the paraesophageal region. Miscellaneous: No ventral hernias. PELVIS: Genitourinary: Bladder wall thickness is normal. Miscellaneous: There is a tiny fat containing right inguinal hernia. No significant pelvic lymphadenopathy is seen. Bones: No suspicious bony lesions. Moderate compression fractures are seen in the L1 and L2 vertebra of uncertain age. IMPRESSION: 1. Prominent gastric varices. No active contrast extravasation is seen into the gastrointestinal tract. Fluid throughout the colon may indicate diarrhea. 2. Hepatic cirrhosis. No ascites. Spleen size is normal. 3. Cholelithiasis. 4. Right apical lung mass measures 4.7 x 3.0 x 2.7 cm, suspicious for malignancy. Mildly enlarged right hilar and right paratracheal lymph nodes are seen measuring up to 1.1 cm in diameter. 5. Moderate centrilobular and paraseptal emphysema. 6. Age-indeterminate moderate vertebral body compression fractures involving the L1 and L2 vertebra Dictated by: Joe Prescott M.D. on 06/12/2020 at 10:47 Approved by: Joe Prescott M.D. on 06/12/2020 at 11:08
[2020-06-12] MEDS: VANCOMYCIN 1,000 MG/200 ML PIGGYBACK 200 MG IV (10:18)
[2020-06-12] MEDS: EPINEPHrine 1 MG/10 ML SYRINGE (10:22)
--- NOTE | 2020-06-12 10:23 | PC.NURSE ---
0920: 10mcg of push dose epi given by Dr Nolan while Norepi gtt being made by pharmacy for hypotension.
[2020-06-12 10:28] LABS: Hematocrit 38.1 % (41-53); Hemoglobin 12.9 g/dL (13.5-17.5)
[2020-06-12 10:33] LABS: Reflexed Lactate in 2 Hours Y
[2020-06-12] MEDS: LACTATED RINGERS 657.71 ML IV (11:17)
[2020-06-12 11:19] LABS: Lactate 2HR (Lactic Acid Rflx) 2.3 mmol/L (0.7-2.1)
--- NOTE | 2020-06-12 11:33 | PC.NURSE ---
On arrival pt was weak and pale, asking immediately for commode. Assisted pt to commode while obtaining vitals. BP 50's/40's. Pt then placed supine in the bed. Guiac positive, but no visable blood. 3 pivs established and fluids started. Blood obtained and sent to lab. Central line placed by . Levophed moved from peripheral line to central line after placement verification. Pt taken to/from ct by this RN with monitor. Upon arrival back to room pt had large emesis. Pt had large liquid bowel movement, suctioned from bed for a total of 400ml. Full bed change performed, pericare and rectal tube placed for fecal containment. Pt adamantly refused craig catheter and will hold off at this time. at bedside and updated on plan of care. Titrating down Levophed.
[2020-06-12] MEDS: CEFTRIAXONE 2 GM/50 ML FROZ.PIGGY IV (12:11)
[2020-06-12] MEDS: OCTREOTIDE 100 MCG/ML VIAL 50 MCG IV (12:11)
[2020-06-12] MEDS: HYDROMORPHONE 1 MG INJ IV (12:12)
--- NOTE | 2020-06-12 12:36 | PC.NURSE ---
Rectal tube leaking, 350ml liquid stool suctioned, pericare and linen change. Pt repositioned onto right side for better drainage. warm blankets.
[2020-06-12 12:48] LABS: Campylobacter Not Detected (Not Detect); Clostridium difficile toxin AB Not Detected (Not Detect); Enteroaggregative E.coli Not Detected (Not Detect); Enteropathogenic E.coli Not Detected (Not Detect); Enterotoxigenic E.coli It/st Not Detected (Not Detect); Plesiomonsa shigelloides Not Detected (Not Detect); Salmonella Not Detected (Not Detect); Shiga-like toxin-prod E.coli Not Detected (Not Detect); Vibrio Not Detected (Not Detect); Vibrio cholerae Not Detected (Not Detect); Yersinia enterocolitica Not Detected (Not Detect)
[2020-06-12 12:49] LABS: Adenovirus F 40/41 Not Detected (Not Detect); Astrovirus Not Detected (Not Detect); Cryptosporidium Not Detected (Not Detect); Cyclospora cayetanensis Not Detected (Not Detect); Entamoeba histolytica Not Detected (Not Detect); Giardia lamblia Not Detected (Not Detect); Norovirus GI/GII Not Detected (Not Detect); Rotavirus A Not Detected (Not Detect); Sapovirus Not Detected (Not Detect); Shigella/Enteroinvasive E.coli Not Detected (Not Detect)
[2020-06-12 12:54] LABS: Hematocrit 38.8 % (41-53); Hemoglobin 13.3 g/dL (13.5-17.5)
[2020-06-12 13:11] LABS: BUN Creatinine Ratio 23.5 (6-22); Blood Urea Nitrogen 57 mg/dL (9-20); Calcium 8.5 mg/dL (8.4-10.2); Carbon Dioxide 19 mmol/L (22-32); Chloride 104 mmol/L (98-107); Estimated Glomerular Filt Rate 26.4 mL/min (>60); Glucose 325 mg/dL (80-110); HEMOLYSIS < 15 (0-50); Sodium 136 mmol/L (137-145)
[2020-06-12 13:12] LABS: Potassium 5.6 mmol/L (3.4-5.1)
[2020-06-12] MEDS: OCTREOTIDE 500 MCG in SODIUM CHLORIDE 0.9% 100 ML 5.05 ML IV (13:17)
--- NOTE | 2020-06-12 14:07 | PC.NURSE ---
Rectal craig continued to leak, another 200ml suctioned. Rectal tube deflated and replaced and then repositioned and pericare performed. Derek NESS from [facility] called for report.
[2020-06-12 14:10] LABS: Ur Creatinine Normal (Normal); Ur Specific Gravity Normal (Normal); Urine pH Normal (Normal)
[2020-06-12 14:11] LABS: UR Morphine/Opiate cutoff 300 Negative (Negative); Urine Amphetamines Negative (Negative); Urine Barbiturates Negative (Negative); Urine Benzodiazepines Negative (Negative); Urine Cocaine Negative (Negative); Urine MDMA Negative (Negative); Urine Methadone Positive (Negative); Urine Methamphetamines Negative (Negative); Urine Oxycodone Negative (Negative); Urine Phencyclidine Negative (Negative); Urine Tetrahydrocannabinol Negative (Negative); Urine Tricyclic Antidepressant Negative (Negative)
--- NOTE | 2020-06-12 14:35 | PC.NURSE ---
Report given to NW RN, questions answered. All paperwork given to crew including EMTALA, PCS, Facesheet, chart and medlist.
== END 2020-06-12 14:35 | disposition short-term general hospital (02) ==
PROVIDERS: Emergency Provider Emergency Medicine
DX: A41.9 Sepsis, unspecified organism (principal); K92.2 Gastrointestinal hemorrhage, unspecified; I95.9 Hypotension, unspecified; R11.0 Nausea; Z20.822 Contact with and (suspected) exposure to COVID-19
CPT/HCPCS: 36415; 36430; 36573; 51701; 71045; 71260; 74177; 80048; 80053; 80305; 80320; 80329; 82272; 82550; 83605; 83690; 84484; 85014; 85018; 85025; 85610; 85730; 86850; 86900; 86901; 87040; 87507; 87635; 93005; 93010; 96361; 96365; 96366; 96368; 96375; 96376; 99285; 99291; 99292; C9803; P9016; C9113; G0480; J0171; J0696; J1170; J2354; J2405; J2543; J3010; Q9967